=== PATIENT | female | born 1990 | race Hispanic/Latino ===

== ENCOUNTER 2019-12-14 13:18 | Outpatient (CLI) | payer OTHER ==
--- NOTE | 2019-12-14 15:32 | CT ---
CT OF THE ABDOMEN WITH IV CONTRAST: 12/14/19 INDICATIONS: 29-year-old female with history of right upper quadrant abdominal pain for five weeks. COMPARISON: Complete abdomen ultrasound dated 02/10/15 and right upper quadrant ultrasound dated 09/03/15, both [facility]. FINDINGS: There is diffuse fatty liver. There are oval regions of increased opacity within the segment VIII of the right hepatic lobe on image 20 of series 2 and within segment of the right hepatic lobe on vicky ge 38 of series 2 measuring 1.6 cm. There is some area of increased density seen adjacent to the gall bladder fossa on image 32 of series 2. The pancreas, adrenal glands and kidneys appear within normal limits. The spleen is normal appearing. There is a small subcentimeter cyst involving the inferior pole of the right kidney and superior artie e of the left kidney. There is a normal retrocecal appendix. Visualized small bowel is normal appeari ng. There is a small fat containing umbilical hernia. No free fluid or enlarged lymph nodes are evide nt. No definite acute osseous abnormality is evident. IMPRESSION: 1. Fatty liver. 2. Scattered areas of mild enhancement involving the right hepatic lobe. Recommend follow-up MRI of the abdomen with and without contrast utilizing a liver mass protocol for additional characteriza tion. These oval densities may reflect small hemangioma, adenoma, or FNH. Alternatively, this may ref lect areas of focal fatty sparring accentuated on this contrast enhanced exam only. 3. Small fat containing umbilical hernia. 4. Tiny bilateral renal cyst. POS: [facility]
== END 2019-12-14 13:19 | disposition home or self-care (01) ==
LOC: SCSCT 13:18
PROVIDERS: ATTEND Family Medicine
DX: R10.11 Right upper quadrant pain (principal); K76.0 Fatty (change of) liver, not elsewhere classified; K42.9 Umbilical hernia without obstruction or gangrene; N28.1 Cyst of kidney, acquired
CPT/HCPCS: 74160

== ENCOUNTER 2022-01-18 14:20 | Outpatient (CLI) | payer BC | END 2022-01-18 14:21 | disposition home or self-care (01) | LOC: BICRAD 14:20 | PROVIDERS: ATTEND Family Medicine | DX: M25.531 Pain in right wrist (principal) ==

== ENCOUNTER 2022-03-16 08:03 | Outpatient (CLI) | payer BC | END 2022-03-16 08:04 | disposition home or self-care (01) | LOC: TBSIIMAG 08:03 | PROVIDERS: ATTEND Orthopaedic Surgery Hand Surgery | DX: S69.81XA Other specified injuries of right wrist, hand and finger(s), initial encounter (principal); S63.8X1A Sprain of other part of right wrist and hand, initial encounter ==

== ENCOUNTER 2022-04-21 14:29 | Outpatient (CLI) | payer BC ==
[2022-04-21 15:19] LABS: #Eosinphils 0.1 10x3/uL (0.0-0.5); #Monocytes 0.4 10x3/uL (0.0-1.1); #Neutrophils 3.8 10x3/uL (1.5-8.4); %Basophils 0.5 % (0.0-2.0); %Eosinophils 2.1 % (0.0-6.0); %Lymphocytes 33.6 % (18.0-47.0); %Neutrophils 57.5 % (40.0-75.0); Hemoglobin 13.7 g/dL (12.0-15.5); Mean Corpuscular HGB CONC 33.4 g/dL (32.0-36.0); Mean Corpuscular Hemoglobin 28.8 pg (27.0-33.0); Mean Corpuscular Volume 86.1 fl (81.6-98.3); Mean Platelet Volume 10.9 fl (7.4-10.4); Platelet Count 282 10x3/uL (150-450); RBC Distribution Width 13.4 % (11.5-14.5); Red Blood Cell (RBC) Count 4.76 10x6/uL (3.90-5.03); White Blood Cell (WBC) Count 6.6 10x3/uL (3.5-10.5)
[2022-04-21 15:45] LABS: BHCG - Serum Negative (NEGATIVE); Pregs Control Background? CLEAR/WHITE (CLR/WHITE); Pregs Control Bar Appear? YES (CONTROL BAR)
== END 2022-04-21 14:30 | disposition home or self-care (01) ==
LOC: LABBT 14:29
PROVIDERS: ATTEND Orthopaedic Surgery Hand Surgery
DX: Z01.812 Encounter for preprocedural laboratory examination (principal); S63.591A Other specified sprain of right wrist, initial encounter
CPT/HCPCS: 84703; 85025

== ENCOUNTER 2022-04-23 07:02 | Day surgery (SDC) | payer BC ==
[2022-04-22 10:30] VITALS: BMI 41.5
[2022-04-23] MEDS ORDERED: Acetaminophen 500 MG TAB ONE (09:53)
[2022-04-23] MEDS ORDERED: Scopolamine 1.5 mg/72 hour Patch ONE (09:53)
[2022-04-23] MEDS ORDERED: EPINEPHrine 1 MG/ML AMP ONE (12:54)
[2022-04-23] MEDS ORDERED: Bupivacaine PF 0.5% 30 ML VIAL ONE ×2 (12:54→18:32)
[2022-04-23] MEDS ORDERED: Thrombin 5000 UNITS/5 ML VIAL ONE (12:55)
[2022-04-23] MEDS ORDERED: Bacitracin Zinc Ointment 30 gm TUBE ONE (12:55)
[2022-04-23] MEDS ORDERED: Neomycin-Polymyxin 1 ML AMP ONE (12:55)
[2022-04-23] MEDS ORDERED: Ondansetron PF 4 MG/2 ML Vial ONE ×2 (15:01→19:22)
[2022-04-23] MEDS ORDERED: Dexamethasone 20 MG/5 ML VIAL ONE (15:01)
[2022-04-23] MEDS ORDERED: Lidocaine 1% PF 5 ML VIAL ONE (15:01)
[2022-04-23] MEDS ORDERED: Glycopyrrolate 0.2 MG/ML 5 ML SYRINGE ONE (15:01)
[2022-04-23] MEDS ORDERED: Rocuronium Bromide 10 MG/ML (10ML VIAL) ONE (15:01)
[2022-04-23] MEDS ORDERED: Ketorolac Tromethamine 30 MG/ML VIAL ONE ×2 (15:01→19:13)
[2022-04-23] MEDS ORDERED: NEOSTIGMINE 3 MG/3 ML SYR 3 MG/3 ML SYRINGE ONE (15:01)
[2022-04-23] MEDS ORDERED: PHENYLEPHRINE-NS 100 MCG/ML 10 ML SYRINGE ONE (15:01)
[2022-04-23] MEDS ORDERED: PROPOFOL 200 MG/20 ML VIAL ONE (15:01)
[2022-04-23] MEDS ORDERED: Sodium Chloride 0.9% 100 ML ONE (15:03)
[2022-04-23] MEDS ORDERED: CEFAZOLIN 2 GM VIAL ONE (15:03)
[2022-04-23] MEDS ORDERED: Fentanyl 250 MCG/5 ML VIAL ONE (15:06)
[2022-04-23] MEDS ORDERED: Fentanyl 100 MCG/2 ML VIAL ONE (19:38)
[2022-04-23] MEDS ORDERED: Promethazine HCl 25 MG/ML VIAL ONE (19:40)
== END 2022-04-23 20:25 | disposition home or self-care (01) ==
LOC: SDC 07:02
PROVIDERS: ATTEND Orthopaedic Surgery Hand Surgery
PROC: 0RQN0ZZ Repair Right Wrist Joint, Open Approach (ICD-10-PCS; principal; 2022-04-23)
PROC: 0RBN4ZZ Excision of Right Wrist Joint, Percutaneous Endoscopic Approach (ICD-10-PCS; principal; 2022-04-23)
PROC: 0RBN0ZZ Excision of Right Wrist Joint, Open Approach (ICD-10-PCS; principal; 2022-04-23)
PROC: 0PBK0ZZ Excision of Right Ulna, Open Approach (ICD-10-PCS; principal; 2022-04-23)
DX: M65.88 Other synovitis and tenosynovitis, other site (principal); M25.831 Other specified joint disorders, right wrist; S63.591A Other specified sprain of right wrist, initial encounter; S63.091A Other subluxation of right wrist and hand, initial encounter; M65.4 Radial styloid tenosynovitis [de Quervain]; M77.8 Other enthesopathies, not elsewhere classified; S63.511A Sprain of carpal joint of right wrist, initial encounter; E78.5 Hyperlipidemia, unspecified; Z87.891 Personal history of nicotine dependence; Z79.899 Other long term (current) drug therapy; X58.XXXA Exposure to other specified factors, initial encounter
CPT/HCPCS: C1713; J0171; J1100; J1885; J2405; J2550; J2704; J3010; J3490; S0020

== ENCOUNTER 2025-02-06 11:22 | Outpatient (CLI) | payer BC | END 2025-02-06 11:23 | disposition home or self-care (01) | LOC: BICMAMMO 11:22 | PROVIDERS: ATTEND Orthopaedic Surgery Orthopaedic Trauma | DX: Z12.31 Encounter for screening mammogram for malignant neoplasm of breast (principal); N80.9 Endometriosis, unspecified; Z80.3 Family history of malignant neoplasm of breast | CPT/HCPCS: 77063; 77067 ==